=== PATIENT | female | born 1940 | race Caucasian/White ===

== ENCOUNTER → 2024-09-07 | Outpatient (CLI) | payer MEDICARE, BC, SELFPAY ==
[2024-09-07 08:57] LABS: Collection Type, Urine Clean Catch
[2024-09-07 09:49] LABS: Albumin, Serum 4.3 gm/dL (3.4-4.8); Anion Gap 6 (7-16); BUN/Creatinine Ratio 24 Ratio (12-20); Blood Urea Nitrogen 24 mg/dL (9-23); Calcium 10.3 mg/dL (8.3-10.6); Calcium (Corrected) 10.3 mg/dL (8.5-10.1); Carbon Dioxide 29.2 mMol/L (20.0-31.0); Chloride 105 mMol/L (98-107); Glucose 136 mg/dL (74-106); Osmolality,Calculated 285 (275-295); Phosphorous 4.1 mg/dL (2.4-5.1); Potassium 4.4 mMol/L (3.4-5.1); Sodium 140 mMol/L (136-145); eGFR 56 See Note
[2024-09-07 09:54] LABS: Bilirubin,Urine Negative (Negative); Blood,Urine Negative (Negative); Clarity,Urine Clear (Clear/Hazy); Color,Urine Yellow (Lt Yel-Yel); Glucose, Urine Negative (Negative); Hyaline Casts,Urine 1 /hpf (0-1); Ketones,Urine Negative (Negative); Leukocyte Esterase,Urine Positive (Negative); Nitrite,Urine Negative (Negative); PH,Urine 5.5 (5.0-7.0); Protein,Urine 1+ (Neg - Trace); RBC,Urine 2 /hpf (0-3); Specific Gravity,Urine 1.019 (1.001-1.035); Squamous Epithelial Cell,Urine 3 /hpf (0-5); Transitional Epi Cells,Urine 1 /hpf (0-5); Urobilinogen,Urine Negative mg/dL (0.0-1.0); WBC,Urine 18 /hpf (0-5)
[2024-09-07 11:34] LABS: Glucose Estimated Average 157 mg/dL (80-131); Hemoglobin A1C 7.1 % Hgb (4.8-6.0)
== END | disposition home or self-care (01) ==
LOC: COPL 08:11
PROVIDERS: PCP Internal Medicine; Referring Provider Internal Medicine; Visit Provider Internal Medicine
DX: E11.9 Type 2 diabetes mellitus without complications (principal); I10 Essential (primary) hypertension
CPT/HCPCS: 36415; 80069; 81001; 83036

== ENCOUNTER → 2024-12-30 | Outpatient (CLI) | payer MEDICARE, BC, SELFPAY ==
[2024-12-30 09:35] LABS: Basophils # (Auto) 0.1 Thou/mm3 (0.0-0.2); Basophils % (Auto) 1 % (0-2.5); Eosinophils # (Auto) 0.3 Thou/mm3 (0.0-0.5); Eosinophils % (Auto) 4 % (0-10); Hematocrit 40.8 % (36.0-46.0); Hemoglobin 13.1 g/dL (12.0-16.0); Immature Granulocytes % (Auto) 0 % (0-0); Immature Granulocytes Auto 0.01 Thou/mm3 (0.00-0.00); Lymphocytes # (Auto) 2.2 Thou/mm3 (1.0-4.8); Lymphocytes % (Auto) 31 % (10-50); Mean Corpuscular HGB Conc 32.1 g/dl (31.0-37.0); Mean Corpuscular Hemoglobin 28.5 pg (25.0-35.0); Mean Corpuscular Volume 89 fL (80-100); Monocytes # (Auto) 0.5 Thou/mm3 (0.0-0.8); Monocytes % (Auto) 8 % (0-12); Neutrophils # (Auto) 4.1 Thou/mm3 (1.8-7.7); Neutrophils % (Auto) 57 % (37-80); Nucleated Red Blood Cell % 0 /100 WBC (0); Platelet Count 130 Thou/mm3 (140-440); RDW Standard Deviation 46.2 fL (36.4-46.3); Red Blood Count 4.59 Miln/mm3 (4.00-5.20); White Blood Count 7.2 Thou/mm3 (3.6-11.0)
[2024-12-30 09:43] LABS: Glucose Estimated Average 163 mg/dL (80-131); Hemoglobin A1C 7.3 % Hgb (4.8-6.0)
[2024-12-30 09:43] LABS: Collection Type, Urine Clean Catch
[2024-12-30 10:10] LABS: Alanine Aminotransferase 21 U/L (10-49); Albumin, Serum 4.2 gm/dL (3.4-4.8); Albumin/Globulin Ratio 1.4 (1.2-2.2); Anion Gap 7 (7-16); Aspartate Amino Transferase 23 U/L (0-34); BUN/Creatinine Ratio 28 Ratio (12-20); Bilirubin,Total 0.6 mg/dL (0.3-1.2); Blood Urea Nitrogen 28 mg/dL (9-23); Calcium 9.8 mg/dL (8.3-10.6); Calcium (Corrected) 9.8 mg/dL (8.5-10.1); Carbon Dioxide 29.5 mMol/L (20.0-31.0); Cardiac Risk Estimate 4.3 RATIO (3.7-5.6); Chloride 102 mMol/L (98-107); Cholesterol 133 mg/dL (132-200); Globulin 2.9 gm/dL (2.3-3.5); Glucose 114 mg/dL (74-106); HDL Cholesterol 31 mg/dL (40-60); LDL Cholesterol,Calculated 56 mg/dL (0-130); Osmolality,Calculated 282 (275-295); Potassium 4.6 mMol/L (3.4-5.1); Sodium 138 mMol/L (136-145); Thyroid Stimulating Hormone 3.07 uIU/mL (0.55-4.78); Total Protein 7.1 gm/dL (5.7-8.2); Triglycerides 228 mg/dL (30-150); eGFR 56 See Note
[2024-12-30 10:16] LABS: Bilirubin,Urine Negative (Negative); Blood,Urine Negative (Negative); Clarity,Urine Clear (Clear/Hazy); Color,Urine Lt-Yellow (Lt Yel-Yel); Glucose, Urine Negative (Negative); Ketones,Urine Negative (Negative); Leukocyte Esterase,Urine Positive (Negative); Nitrite,Urine Negative (Negative); Protein,Urine Trace (Neg - Trace); RBC,Urine 1 /hpf (0-3); Specific Gravity,Urine 1.015 (1.001-1.035); Squamous Epithelial Cell,Urine 1 /hpf (0-5); Urobilinogen,Urine Negative mg/dL (0.0-1.0); WBC,Urine 4 /hpf (0-5)
[2024-12-30 10:18] LABS: Creatinine MALB Rnd Ur 91 mg/dL (30-125); Microalbumin Creat Ratio 103 mg/gCrea (<30); Microalbumin, Random Urine 94 mg/L (0-300)
[2024-12-30 10:20] LABS: Alkaline Phosphatase 49 U/L (46-116)
== END | disposition home or self-care (01) ==
LOC: COPL 08:47
PROVIDERS: PCP Internal Medicine; Referring Provider Internal Medicine; Visit Provider Internal Medicine Cardiovascular Disease
DX: N17.9 Acute kidney failure, unspecified (principal); I10 Essential (primary) hypertension; R78.5 Finding of other psychotropic drug in blood; E11.9 Type 2 diabetes mellitus without complications
CPT/HCPCS: 36415; 80053; 80061; 81001; 82043; 82570; 83036; 84443; 85025

== ENCOUNTER → 2025-04-05 | Outpatient (CLI) | payer MEDICARE, BC, SELFPAY ==
[2025-04-05 09:42] LABS: Collection Type, Urine Clean Catch
[2025-04-05 10:25] LABS: Creatinine,Random Urine 101 mg/dL (30-125)
[2025-04-05 10:33] LABS: Bilirubin,Urine Negative (Negative); Blood,Urine Negative (Negative); Clarity,Urine Clear (Clear/Hazy); Color,Urine Lt-Yellow (Lt Yel-Yel); Glucose, Urine Negative (Negative); Ketones,Urine Negative (Negative); Leukocyte Esterase,Urine Negative (Negative); Nitrite,Urine Negative (Negative); Protein,Urine Trace (Neg - Trace); RBC,Urine 1 /hpf (0-3); Specific Gravity,Urine 1.019 (1.001-1.035); Squamous Epithelial Cell,Urine < 1 /hpf (0-5); Urobilinogen,Urine Negative mg/dL (0.0-1.0); WBC,Urine 2 /hpf (0-5)
[2025-04-05 10:44] LABS: Alanine Aminotransferase 19 U/L (10-49); Albumin, Serum 4.1 gm/dL (3.4-4.8); Albumin/Globulin Ratio 1.5 (1.2-2.2); Alkaline Phosphatase 46 U/L (46-116); Anion Gap 9 (7-16); Aspartate Amino Transferase 22 U/L (0-34); BUN/Creatinine Ratio 29 Ratio (12-20); Bilirubin,Total 0.5 mg/dL (0.3-1.2); Blood Urea Nitrogen 29 mg/dL (9-23); Carbon Dioxide 28.9 mMol/L (20.0-31.0); Cardiac Risk Estimate 4.1 RATIO (3.7-5.6); Chloride 105 mMol/L (98-107); Cholesterol 131 mg/dL (132-200); Free T4 (Free Thyroxine) 0.96 ng/dL (0.89-1.76); Globulin 2.7 gm/dL (2.3-3.5); Glucose 127 mg/dL (74-106); HDL Cholesterol 32 mg/dL (40-60); LDL Cholesterol,Calculated 47 mg/dL (0-130); Osmolality,Calculated 292 (275-295); Potassium 4.8 mMol/L (3.4-5.1); Sodium 143 mMol/L (136-145); Thyroid Stimulating Hormone 3.06 uIU/mL (0.55-4.78); Total Protein 6.8 gm/dL (5.7-8.2); Triglycerides 260 mg/dL (30-150); eGFR 56 See Note
[2025-04-05 11:07] LABS: Glucose Estimated Average 166 mg/dL (80-131); Hemoglobin A1C 7.4 % Hgb (4.8-6.0)
== END | disposition home or self-care (01) ==
LOC: COPL 08:51
PROVIDERS: PCP Internal Medicine; Referring Provider Internal Medicine; Visit Provider Internal Medicine
DX: E03.9 Hypothyroidism, unspecified (principal); E11.9 Type 2 diabetes mellitus without complications; I10 Essential (primary) hypertension; E78.5 Hyperlipidemia, unspecified
CPT/HCPCS: 36415; 80053; 80061; 81001; 82570; 83036; 84439; 84443

== ENCOUNTER → 2025-06-28 | Outpatient (CLI) | payer MEDICARE, BC, SELFPAY ==
--- NOTE | 2025-06-28 11:30 | XR_ITS ---
Examination: Screening digital mammography, bilateral Computer aided detection 3-D breast Tomosynthesis, bilateral Date and time of exam: 06/28/2025, 11:20 AM Comparisons: February 2022 through June 2024 Indications: Screening Technique: Nonmagnified MLO, CC views of the breasts to been obtained, reconstructed from 3-D Tomosynthesis images. R2 computer aided detection program utilized for evaluation of suspicious masses and/or abnormal calcifications. 3-D Tomosynthesis images obtained. Technologist: Findings: The breasts are heterogeneously dense, which may obscure small masses. No evidence of abnormal masses or suspicious calcifications. Stable benign vascular calcifications. Impression: BI-RADS category 2: Benign findings Recommend 1 year follow-up mammogram
== END | disposition home or self-care (01) ==
LOC: CDIM 11:05
PROVIDERS: PCP Internal Medicine; Referring Provider Internal Medicine; Visit Provider Internal Medicine
DX: Z12.31 Encounter for screening mammogram for malignant neoplasm of breast (principal); R92.323 Mammographic fibroglandular density, bilateral breasts
CPT/HCPCS: 77063; 77067

== ENCOUNTER → 2025-07-12 | Outpatient (CLI) | payer MEDICARE, BC, SELFPAY ==
[2025-07-12 10:11] LABS: Collection Type, Urine Clean Catch; Squamous Epithelial Cell,Urine 0 /hpf (0-5)
[2025-07-12 10:38] LABS: Basophils # (Auto) 0.1 Thou/mm3 (0.0-0.2); Basophils % (Auto) 1 % (0-2.5); Eosinophils # (Auto) 0.4 Thou/mm3 (0.0-0.5); Eosinophils % (Auto) 5 % (0-10); Hematocrit 40.1 % (36.0-46.0); Hemoglobin 13.0 g/dL (12.0-16.0); Immature Granulocytes Auto 0.01 Thou/mm3 (0.00-0.00); Lymphocytes # (Auto) 2.2 Thou/mm3 (1.0-4.8); Lymphocytes % (Auto) 35 % (10-50); Mean Corpuscular HGB Conc 32.4 g/dl (31.0-37.0); Mean Corpuscular Hemoglobin 29.7 pg (25.0-35.0); Mean Corpuscular Volume 92 fL (80-100); Monocytes # (Auto) 0.6 Thou/mm3 (0.0-0.8); Monocytes % (Auto) 9 % (0-12); Neutrophils # (Auto) 3.2 Thou/mm3 (1.8-7.7); Neutrophils % (Auto) 50 % (37-80); Nucleated Red Blood Cell # 0.00 Thou/mm3 (0.00-0.00); Nucleated Red Blood Cell % 0 /100 WBC (0); Platelet Count 116 Thou/mm3 (140-440); RDW Standard Deviation 45.9 fL (36.4-46.3); Red Blood Count 4.38 Miln/mm3 (4.00-5.20); White Blood Count 6.5 Thou/mm3 (3.6-11.0)
[2025-07-12 10:47] LABS: Bilirubin,Urine Negative (Negative); Blood,Urine Negative (Negative); Clarity,Urine Clear (Clear/Hazy); Color,Urine Lt-Yellow (Lt Yel-Yel); Glucose, Urine Negative (Negative); Ketones,Urine Negative (Negative); Leukocyte Esterase,Urine Positive (Negative); Nitrite,Urine Negative (Negative); PH,Urine 6.0 (5.0-7.0); Protein,Urine Negative (Neg - Trace); RBC,Urine < 1 /hpf (0-3); Specific Gravity,Urine 1.012 (1.001-1.035); Urobilinogen,Urine Negative mg/dL (0.0-1.0); WBC,Urine 2 /hpf (0-5)
[2025-07-12 10:55] LABS: Creatinine MALB Rnd Ur 63 mg/dL (30-125); Microalbumin Creat Ratio 62 mg/gCrea (<30); Microalbumin, Random Urine 39 mg/L (0-300)
[2025-07-12 11:11] LABS: Glucose Estimated Average 174 mg/dL (80-131); Hemoglobin A1C 7.7 % Hgb (4.8-6.0)
[2025-07-12 11:29] LABS: Alanine Aminotransferase 15 U/L (10-49); Albumin, Serum 4.2 gm/dL (3.4-4.8); Albumin/Globulin Ratio 1.6 (1.2-2.2); Alkaline Phosphatase 45 U/L (46-116); Anion Gap 11 (7-16); Aspartate Amino Transferase 20 U/L (0-34); BUN/Creatinine Ratio 23 Ratio (12-20); Bilirubin,Total 0.6 mg/dL (0.3-1.2); Blood Urea Nitrogen 27 mg/dL (9-23); Calcium 10.0 mg/dL (8.3-10.6); Calcium (Corrected) 10.0 mg/dL (8.5-10.1); Carbon Dioxide 27.2 mMol/L (20.0-31.0); Cardiac Risk Estimate 3.8 RATIO (3.7-5.6); Chloride 103 mMol/L (98-107); Cholesterol 120 mg/dL (132-200); Creatinine (Component) 1.2 mg/dL (0.6-1.3); Globulin 2.6 gm/dL (2.3-3.5); Glucose 100 mg/dL (74-106); HDL Cholesterol 32 mg/dL (40-60); LDL Cholesterol,Calculated 38 mg/dL (0-130); Osmolality,Calculated 286 (275-295); Potassium 4.6 mMol/L (3.4-5.1); Sodium 141 mMol/L (136-145); Total Protein 6.8 gm/dL (5.7-8.2); Triglycerides 248 mg/dL (30-150); eGFR 44 See Note
== END | disposition home or self-care (01) ==
LOC: COPL 09:04
PROVIDERS: PCP Internal Medicine; Referring Provider Internal Medicine Cardiovascular Disease; Visit Provider Internal Medicine
DX: E11.9 Type 2 diabetes mellitus without complications (principal); I10 Essential (primary) hypertension; E78.5 Hyperlipidemia, unspecified
CPT/HCPCS: 36415; 80053; 80061; 81001; 82043; 82570; 83036; 85025

== ENCOUNTER 2025-08-23 01:00 | Emergency (ER) | payer MEDICARE, BC, SELFPAY ==
[2025-08-23 01:01] VITALS: BMI 22.6
[2025-08-23 01:28] VITALS: BP 155/93; PULSE 108; RESP 18; TEMP 36.8; O2SAT 96
--- NOTE | 2025-08-23 01:33 | XR_ITS ---
Examination: CT brain head without contrast. 2-D sagittal coronal reconstructions Date and time of exam: August 23, 2025, 0226 hours, comparison June 25, 2023, comparison June 25, 2023. The INDICATIONS: Paresthesias throughout the entire body beginning 3 nights ago CTDI: vol (mGy): 46.5 DLP: (mGycm): 885 Technique: Multiple CT axial sections of the brain have been obtained, 5 mm slice thickness. Contrast has not been administered. 2-D sagittal, coronal reconstructions have been obtained Low dose protocols were performed. One or more of the following dose reduction techniques were used; automated exposure control, adjustment of the mA and/or KV according to patient size, use of iterative reconstruction technique. Findings: No significant ventricular enlargement. Intra-axial or extra-axial hemorrhage density is not seen. No mass effect or midline shift Basal cisterns are not remarkable. Fourth ventricle is midline. Cranial vault intact. Impression: Negative for acute hemorrhage, mass effect or midline shift Advise clinical correlation and follow-up accordingly
--- NOTE | 2025-08-23 01:33 | EKG_ITS ---
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
[2025-08-23 02:35] LABS: Basophils # (Auto) 0.1 Thou/mm3 (0.0-0.2); Basophils % (Auto) 1 % (0-2.5); Eosinophils # (Auto) 0.3 Thou/mm3 (0.0-0.5); Eosinophils % (Auto) 3 % (0-10); Hematocrit 37.8 % (36.0-46.0); Hemoglobin 12.4 g/dL (12.0-16.0); Immature Granulocytes Auto 0.02 Thou/mm3 (0.00-0.00); Lymphocytes # (Auto) 2.5 Thou/mm3 (1.0-4.8); Lymphocytes % (Auto) 29 % (10-50); Mean Corpuscular HGB Conc 32.8 g/dl (31.0-37.0); Mean Corpuscular Hemoglobin 29.7 pg (25.0-35.0); Mean Corpuscular Volume 90 fL (80-100); Monocytes # (Auto) 0.8 Thou/mm3 (0.0-0.8); Monocytes % (Auto) 9 % (0-12); Neutrophils # (Auto) 5.1 Thou/mm3 (1.8-7.7); Neutrophils % (Auto) 59 % (37-80); Nucleated Red Blood Cell # 0.00 Thou/mm3 (0.00-0.00); Nucleated Red Blood Cell % 0 /100 WBC (0); Platelet Count 120 Thou/mm3 (140-440); RDW Standard Deviation 44.5 fL (36.4-46.3); Red Blood Count 4.18 Miln/mm3 (4.00-5.20); White Blood Count 8.7 Thou/mm3 (3.6-11.0)
[2025-08-23 02:42] LABS: B-Type Natriuretic Peptide 75 pg/mL (0-100)
[2025-08-23 02:46] LABS: Alanine Aminotransferase 15 U/L (10-49); Albumin, Serum 4.3 gm/dL (3.4-4.8); Albumin/Globulin Ratio 1.6 (1.2-2.2); Alkaline Phosphatase 48 U/L (46-116); Anion Gap 9 (7-16); Aspartate Amino Transferase 20 U/L (0-34); BUN/Creatinine Ratio 20 Ratio (12-20); Bilirubin,Total 0.4 mg/dL (0.3-1.2); Blood Urea Nitrogen 20 mg/dL (9-23); Calcium 9.5 mg/dL (8.3-10.6); Calcium (Corrected) 9.5 mg/dL (8.5-10.1); Carbon Dioxide 27.3 mMol/L (20.0-31.0); Chloride 106 mMol/L (98-107); Creatinine (Component) 1.0 mg/dL (0.6-1.3); Estimated Creatinine Clearance 34.0 mL/min (>60); Globulin 2.7 gm/dL (2.3-3.5); Glucose 109 mg/dL (74-106); Osmolality,Calculated 286 (275-295); Potassium 4.1 mMol/L (3.4-5.1); Sodium 142 mMol/L (136-145); Thyroid Stimulating Hormone 5.29 uIU/mL (0.55-4.78); Total Protein 7.0 gm/dL (5.7-8.2); Troponin I < 0.002 ng/mL (0.0-0.045); eGFR 55 See Note
--- NOTE | 2025-08-23 03:01 | PRELIM_ITS ---
CT scan of the head without intravenous contrast (axial sections with sagittal and coronal reformats) August 23, 2025 0226 hours Clinical history: TING;ING SESNASTION No prior study is available for comparison. Findings: There is no evidence of intracranial hemorrhage, mass effect or midline shift. There are mild periventricular white matter hypodensities, likely representing chronic small vessel ischemia. There is mild volume loss. There is atheromatous calcification of the intracranial arteries. The calvarium is unremarkable. The mastoid air cells and the visualized paranasal sinuses are clear. Impression: No evidence of intracranial hemorrhage, mass effect or midline shift. Periventricular chronic small vessel ischemia and volume loss. Report Electronically Signed By: Devante Bone 08/23/2025 3:01:28 AM [EST]
[2025-08-23 04:11] LABS: Collection Type, Urine Clean Catch
[2025-08-23 04:18] LABS: Bilirubin,Urine Negative (Negative); Blood,Urine Negative (Negative); Clarity,Urine Clear (Clear/Hazy); Color,Urine Lt-Yellow (Lt Yel-Yel); Glucose, Urine Negative (Negative); Hyaline Casts,Urine < 1 /hpf (0-1); Ketones,Urine Negative (Negative); Leukocyte Esterase,Urine Positive (Negative); Nitrite,Urine Negative (Negative); PH,Urine 6.0 (5.0-7.0); Protein,Urine Negative (Neg - Trace); RBC,Urine 1 /hpf (0-3); Specific Gravity,Urine 1.015 (1.001-1.035); Squamous Epithelial Cell,Urine 1 /hpf (0-5); Urobilinogen,Urine Negative mg/dL (0.0-1.0); WBC,Urine 5 /hpf (0-5)
--- NOTE | 2025-08-23 04:48 | XR_ITS ---
EXAMINATION: PA chest single view TECHNIQUE: Upright PA chest single view Date and time: August 23, 2025, 0506 hours INDICATIONS: Shortness of breath today. FINDINGS: Mild prominence cardiac contours Median sternotomy wires. Mild vascular congestion. No lobar pneumonia or pulmonary edema IMPRESSION: Mild vascular congestion
[2025-08-23 04:52] VITALS: BP 136/87; PULSE 96; RESP 18; TEMP 36.6; O2SAT 97
[2025-08-23 05:06] VITALS: BP 136/87; PULSE 96
[2025-08-23] MEDS: METOPROLOL TARTRATE 25 MG TABLET PO (05:06)
[2025-08-23 05:26] LABS: INR 1.1 (0.9-1.3); Prothrombin Time 11.2 Seconds (9.0-12.2)
[2025-08-23 05:28] LABS: B-Type Natriuretic Peptide 76 pg/mL (0-100); Troponin I < 0.002 ng/mL (0.0-0.045)
--- NOTE | 2025-08-23 05:42 | PD.EDARRY ---
ED Arrhythmia Palp. RME/HPI General Chief Complaint: General Adult/Misc Complain Stated Complaint: TINGLING FEELING Time Seen by Provider: 08/23/25 01:34 Arrival date/time: 08/23/25 01:00 This is a case of 85-year-old female with history of atrial fibrillation on Eliquis hyperlipidemia diabetes hypertension came in in the emergency room due to palpitation 2-hour prior to arrival in the emergency room patient also noted to have generalized tingling sensation for 1 week persistence of the symptoms thus patient decided to start consulted in the emergency room denies any headache dizziness denies any numbness or weakness denies any chest pain shortness of breath fever or chills or cough Limitations: no limitations Related Data Home Medications ?Medication ?Instructions ?Recorded ?Confirmed glipizide 5 mg-metformin 500 mg 1 tab PO BID 02/19/19 06/23/23 tablet atorvastatin 10 mg tablet 10 mg PO QDAY 03/19/22 06/23/23 Previous Rx's ?Medication ?Instructions ?Recorded metoprolol succinate 25 mg 50 mg (2 x 25 mg) PO DAILY #30 tabs 03/20/22 tablet,extended release 24 hr nicardipine 20 mg capsule 20 mg PO BID #60 caps 06/24/23 apixaban 5 mg tablet (Eliquis) 5 mg PO BID #60 tabs 06/25/23 nitrofurantoin macrocrystal 100 mg 100 mg PO BID #10 caps 06/25/23 capsule (Macrodantin) Allergies Allergy/AdvReac Type Severity Reaction Status Date / Time Penicillins Allergy Verified 08/23/25 01:04 prednisone Allergy Verified 08/23/25 01:04 Review of Systems Review of Systems Systems Reviewed: All systems reviewed, normal except as documented Constitutional Constitutional: Reports system reviewed and no additional complaints, except as documented, Reports as per HPI, Denies chills, Denies fever(s), Denies frequent falls, Denies headache(s) and Denies weakness Eyes Eyes: Denies loss of vision ENT Ears, Nose, Mouth, and Throat: Denies abnormal hearing, Denies disequilibrium, Denies dizziness, Denies headache(s) and Denies vertigo Cardiovascular Cardiovascular: Reports system reviewed and no additional complaints, except as documented, Reports as per HPI, Denies acrocyanosis, Denies chest pain, Denies chest pain at rest, Denies chest pain with activity, Denies claudication, Denies diaphoresis, Denies dyspnea, Denies dyspnea on exertion, Denies edema, Reports irregular heart rhythm, Denies leg edema, Denies leg ulcers, Denies lightheadedness, Denies orthopnea, Reports palpitations, Denies paroxysmal nocturnal dyspnea, Denies pedal edema, Denies radiating jaw, neck or arm pain, Denies rapid heart rate, Denies slow heart rate and Denies syncope Respiratory Respiratory: Reports system reviewed and no additional complaints, except as documented, Reports as per HPI, Denies dyspnea and Denies dyspnea on exertion Musculoskeletal Musculoskeletal: Denies abnormal gait, Denies numbness and Reports tingling Neurologic Neurologic: Reports system reviewed and no additional complaints, except as documented, Reports as per HPI, Denies abnormal gait, Denies abnormal hearing, Denies abnormal movements, Denies abnormal speech, Denies behavioral changes, Denies burning sensations, Denies confusion, Denies convulsions, Denies disequilibrium, Denies dizziness, Denies localized weakness, Denies frequent falls, Denies headache(s), Denies lack of coordination, Denies loss of vision, Denies memory loss, Denies numbness, Denies other visual disturbances, Denies paresthesias, Denies radicular pain, Denies restless legs, Denies seizure-like activity, Denies sensory deficit, Denies syncope, Reports tingling, Denies tremor(s), Denies vertigo and Denies weakness Psychiatric Psychiatric: Denies behavioral changes, Denies confusion and Denies memory loss Endocrine Endocrine: Reports palpitations Past Medical History Past Medical History NEUROLOGIC: Negative Neurological Disorders or Seizures CARDIAC: Positive Cardiac Disorders, Atrial Fibrillation, Hypercholesterolemia and Hypertension; Negative Congestive Heart Failure RESPIRATORY: Positive Bronchitis; Negative Chronic Obstructive Pulmonary Disease (COPD) or Asthma GASTROINTESTINAL: Positive Gastrointestinal Disorders GENITOURINARY: Negative Genitourinary Disorders or Renal Disease REPRODUCTIVE: Positive Previous Pregnancies MUSCULOSKELETAL: Positive Musculoskeletal Disorders, Arthritis and Carpal Tunnel Syndrome ENT: Positive Cataracts ENDOCRINE: Positive Endocrine Disorders and Diabetes Mellitus Type 2; Negative Diabetes Mellitus Type 1 HEMATOLOGIC: Negative Blood Disorders OTHER HISTORY: Negative Autoimmune Disease, Falls, Blood Transfusions, Blood Transfusion Reaction or Anesthesia Reactions Family History FAMILY HISTORY: Positive Family Cardiac Disorders; Negative Family Psychiatric Problems, Family Respiratory Disorders, Family Gastrointestinal Problems, Family Cancer, Family Surgery or Family Anesthesia Reaction Surgical History SURGICAL: Positive Cardiac Surgery ([facility] IN 2018) and Open Heart Surgery Social History SMOKING STATUS: Never smoker SECOND HAND EXPOSURE: No ED Exam General Limitations: Present no limitations General appearance: Present alert, in no apparent distress and other Head Head exam: Present atraumatic, normocephalic and normal inspection Eye Eye exam: Present normal appearance, PERRL and EOMI ENT ENT exam: Present normal exam, normal oropharynx and mucous membranes moist Neck Neck exam: Present normal inspection, full ROM and trachea midline; Absent tenderness, meningismus, lymphadenopathy or thyromegaly Chest Chest inspection: Present normal inspection and symmetric chest wall rise; Absent tenderness Respiratory Respiratory exam: Present normal lung sounds bilaterally; Absent respiratory distress, wheezes, stridor, accessory muscle use or prolonged expiratory phase Cardiovascular Cardiovascular exam: Present regular rate, normal rhythm and normal heart sounds; Absent bradycardia, tachycardia, irregular rhythm, systolic murmur, diastolic murmur, rubs, gallop, clicks or JVD Abdominal Exam Abdominal exam: Present soft and normal bowel sounds; Absent distention, tenderness, guarding, rebound, rigidity, diminished bowel sounds, hyperactive bowel sounds, hypoactive bowel sounds or organomegaly Extremities Exam Extremities exam: Present normal inspection and full ROM Back Exam Back exam: Present normal inspection and full ROM Neurological Exam Neurological exam: Present alert, oriented X3, CN II-XII intact, normal gait, reflexes normal and other (Awake alert oriented x 4 no focal deficit GCS 15/15 steady gait memory intact no facial droop no slurring of speech CN II to XII is normal no facial numbness motor or sensory reflex are normal negative Babinski); Absent motor sensory deficit Psychiatric Psychiatric exam: Present normal affect and normal mood Skin Skin exam: Present warm, dry, intact and normal color Course Quality Measures none Orders Category Date Time Status EKG (ED ONLY) *Do not use* NOW Care 08/23/25 01:[address] head/brain wo con Stat Exams 08/23/25 01:33 Taken EKG (ED Only) Stat Exams 08/23/25 01:33 Ordered XR chest 1V Stat Exams 08/23/25 04:48 Taken BNP [B-Type Natriuretic Peptide] Stat Lab 08/23/25 02:16 Completed BNP [B-Type Natriuretic Peptide] Stat Lab 08/23/25 05:02 Completed CBC Stat Lab 08/23/25 02:16 Completed Comprehensive Metabolic Panel Stat Lab 08/23/25 02:16 Completed Prothrombin Time with INR Stat Lab 08/23/25 05:02 Completed TSH [Thyroid Stimulating Hormone] Stat Lab 08/23/25 02:16 Completed Troponin I Stat Lab 08/23/25 02:16 Completed Troponin I Stat Lab 08/23/25 05:02 Completed Urinalysis Stat Lab 08/23/25 03:56 Completed Metoprolol Tartrate [Lopressor] Med 08/23/25 05:02 Discontinued 25 mg PO X1 ONE Metoprolol Tartrate [Lopressor] Med 08/23/25 04:43 Discontinued 50 mg PO X1 ONE Vital Signs Vital signs: Vital Signs Temperature 98.2 F 08/23/25 01:28 Pulse Rate 108 H 08/23/25 01:28 Respiratory Rate 18 08/23/25 01:28 Blood Pressure 155/93 H 08/23/25 01:28 Pulse Oximetry (%) 96 08/23/25 01:28 Oxygen Delivery Method Room Air 08/23/25 01:28 Oxygen saturation is 96% in room air Arrhythmia/Palpitations MDM Narrative MDM Narrative:: This is a case of 85-year-old female with history of atrial fibrillation on Eliquis hyperlipidemia diabetes hypertension came in in the emergency room due to palpitation 2-hour prior to arrival in the emergency room patient also noted to have generalized tingling sensation for 1 week persistence of the symptoms thus patient decided to start consulted in the emergency room denies any headache dizziness denies any numbness or weakness denies any chest pain shortness of breath fever or chills or cough physical examination patient is awake alert oriented not in distress nontoxic looking vital signs stable BP stable not tachycardic not tachypneic afebrile and nonhypoxic negative meningeal signs lungs sound is clear no crackles no rales no retraction no stridor heart normal rate regular rhythm no murmur abdomen soft no guarding no rebound no rigidity neurological exam is normal awake alert oriented x 4 no focal deficit GCS 15/15 steady gait the rest of the physical examination neurological exam is normal and unremarkable blood test showed no leukocytosis no anemia kidney and liver function is normal no electrolyte imbalance 2 troponin is negative BNP is normal patient TSH is elevated patient EKG is atrial fibrillation with heart rate of 111 chest x-ray is normal CT scan of the head is normal Dr. Hannah reviewed the blood test imaging and patient condition I was only instructed to discharge the patient since the patient is already on Eliquis and the heart rate went down to 96 after giving metoprolol and 2 troponin I discussed with the patient the treatment plan and management she is well notified to see a primer expeditor and drier for his atrial fibrillation and palpitation for further evaluation and treatment for possible echocardiogram stress test and Holter monitor she was also advised to see a neurologist for his tingling sensation generalized I do not think patient is having myocardial infarction or pulmonary embolism I do not think the patient is having CVA TIA by instruction of Dr. Hannah patient is aware to follow-up with PCP for reevaluation and for any recurrence persistent worsening symptoms or any emergent concern return precaution to the ER is advised Patient was discharged with comfortable condition walking with stable gait. Patient verbalized no further complains explained diagnosis and answered patient question. Patient is comfortable with the proposed management plan including the need to follow up with his/her primary care physician and any specialist if applicable Discussed patient for any urgent condition or worsening sx, He/She needed to go to emergency room immediately or call 911. Patient acknowledge the responsibility to follow up as instructed and to monitor her/his symptoms. For any persistence of the symptoms for more than 3-5 days return precaution advised. Discussed the result of the test and was given printed discharge instruction Patient data External records reviewed:: [facility] previous records Clinical information provided by:: patient Social determinants that could affect healthcare access:: none Patient has the following chronic illnesses:: Hypertension atrial fibrillation diabetes hyperlipidemia How is presenting disease/condition affected by chronic disease/condition?: uneffected by Evaluation data The following diagnostics were reviewed and interpreted by me:: lab results, radiology exam(s) and EKG tracing(s) Lab and/or radiology exams considered but not ordered:: Reviewed Interpretation Summary: Reviewed Medications / Prescriptions Medications or Prescriptions considered but not ordered:: Given Medication administrations:: Medication Administration History Discontinued Medications Metoprolol Tartrate (Metoprolol Tartrate 25 Mg Tablet) 50 mg PO X1 ONE Stop: 08/23/25 04:44 Last Admin: 08/23/25 05:09 Dose: Not Given Documented By: GABE Non-Admin Reason: Cancelled by Provider Metoprolol Tartrate (Metoprolol Tartrate 25 Mg Tablet) 25 mg PO X1 ONE Stop: 08/23/25 05:03 Last Admin: 10/20/25 05:06 Dose: 25 mg Documented By: GABE Given Consultations Consultation(s) initiated? (list below): Yes Consultation #1 (Physician, Specialty, Details): Dr. Hannah reviewed the blood test imaging and patient condition I was instructed to discharge the patient since the patient blood test were normal and the heart rate improved from 1 11-96 in spite of patient is having atrial fibrillation and palpitation 2 troponin is negative Diagnosis Differential diagnosis arrhythmia/palpitations: palpitations, anxiety, sinus tachycardia and artial fibrillation Most likely diagnosis given after review of the tests above:: Atrial fibrillation palpitation Admission Indicated Admission indicated?: not indicated Explain why admission is indicated or not indicated:: Not indicated as stated by Dr. Hannah Admission Request Was there a request for admission?: No Admission Attestation Admission request attestation: Not indicated as stated by Dr. Hannah Disposition Plan Disposition Plan: Discharge Discharge Attestation Discharge Attestation: The patient and all family members were given an opportunity to ask questions and understood the discharge instructions. Discharge instructions specifically effects, indications for sooner follow up or return to the emergency department, and the expected course of current diagnosis. Patient condition: Stable Discharge Plan Plan Patient Disposition: HOME (Self Care) Patient condition on transfer: Stable Prescriptions/Referrals Prescriptions/Med Rec: No Action glipizide-metformin 5-500 mg Tablet 1 tab PO BID atorvastatin 10 mg Tablet 10 mg PO QDAY Patient Comments: per pt not taking this meds at home . metoprolol succinate 25 mg Tablet Extended Release 24 Hr 50 mg PO DAILY Qty: 30 0RF nicardipine 20 mg Capsule 20 mg PO BID Qty: 60 0RF Eliquis 5 mg tablet 5 mg PO BID Qty: 60 0RF nitrofurantoin macrocrystal [Macrodantin] 100 mg capsule 100 mg PO BID Qty: 10 0RF Rx Instructions: must administer with a meal/food Referrals: Asa Mckeon MD [Primary Care Provider, Nephrology] - In 1 week Problem List Clinical Impression: Palpitation, Abnormal TSH, Tingling sensation Patient/Caregiver Discharge Instructions Education Materials: Thyroid-Stimulating Hormone, ED Palpitations, ED Paraesthesias Additional Instructions: Follow-up with your primary care physician in 2 days for reevaluation and to be referred to primer expeditor and drier for further evaluation and treatment of your palpitation and atrial fibrillation for possible echocardiogram stress test and Holter monitor and to review your medication follow-up with your primary care physician to be referred to neurologist for generalized tingling sensation for any recurrent events persistent worsening symptoms or any emergent concern call 911 or go to the nearest emergency room continue to take your medication for atrial fibrillation and hypertension Print Language: Faroese Stand Alone Forms: Joy Award Info., Patient Portal Info Letter PA/RETAIL OPERATIONS MANAGER Supervising Physician PA/RETAIL OPERATIONS MANAGER Supervising Physician: Dr. Hannah
[2025-08-23 05:54] VITALS: BP 155/88; PULSE 89; RESP 18; TEMP 36.6; O2SAT 98
== END 2025-08-23 05:55 | disposition home or self-care (01) ==
PROVIDERS: Nurse Practitioner Family; Emergency Provider Emergency Medicine; PCP Internal Medicine
DX: R00.2 Palpitations (principal); E11.9 Type 2 diabetes mellitus without complications; E78.5 Hyperlipidemia, unspecified; I10 Essential (primary) hypertension; Z79.01 Long term (current) use of anticoagulants; Z79.84 Long term (current) use of oral hypoglycemic drugs; I48.91 Unspecified atrial fibrillation
CPT/HCPCS: 36415; 70450; 71045; 80053; 81001; 83880; 84443; 84484; 85025; 85610; 93005; 99283; A9270